=== PATIENT | female | born 1980 | race Caucasian/White ===

== ENCOUNTER → 2017-09-12 16:24 | Outpatient (CLI) | payer BC ==
[~2017-09-12 16:24] MED LIST: HYDROCODON-ACE1 EAC7 PO; IBUPROFEN600 MG PO; PERCOCET 10/3251 TA1 PO
[2017-10-06 18:31] VITALS: BMI 20.6
== END | disposition home or self-care (01) ==
LOC: D.RAD 16:24
DX: N20.0 Calculus of kidney (principal)

== ENCOUNTER → 2017-09-12 18:04 | Outpatient (CLI) | payer BC ==
[2017-10-06 18:31] VITALS: BMI 20.6
== END | disposition home or self-care (01) ==
LOC: D.LABREF 18:04
DX: R31.9 Hematuria, unspecified (principal)

== ENCOUNTER 2017-09-14 05:51 | Day surgery (SDC) | payer BC ==
[~2017-09-14] VITALS: Ht 165.1 cm; Wt 54.4 kg
--- NOTE | ~2017-09-14 | OP ---
PATIENT NAME: YURIY HOLCOMB MEDICAL RECORD: [id number] LOCATION:D[facility] ADMISSION DATE: SURGEON: KT WHITNEY MD DATE OF OPERATION: 09/14/2017 SURGEON: Kt Whitney MD ANESTHESIA: General anesthesia by Dr. Kt Pinto. PREOPERATIVE DIAGNOSES: Right flank pain, possible right ureteral stone. PROCEDURES: Cystoscopy and right retrograde pyelogram. FINDINGS: Single ureteral orifices bilaterally. No bladder tumors. Radiodensity in the pelvis is not a ureteral stone. BLOOD LOSS: None. CLINICAL HISTORY: This is a 37-year-old female, who has been complaining of right flank pain for some time. She had a CT scan performed at [facility] on 10/12/16. This showed a 7 mm right renal stone. She saw Dr. Perez about this and he told her to wait and try to pass it on her own. In the meantime, she lost her insurance, so she did not followup with him. She finally has insurance again and now she comes to have this addressed. Also, she has a cervix which needs to be removed by Dr. Dillon post hysterectomy. The cervix is quite adherent to the bladder and I will be helping him with this operation in the future. This is scheduled for early September. I obtained a KUB and it showed a radiodensity in the right pelvis which may have been the renal stone. We are going to try to confirm if it is a stone and if it is a stone, we will remove it. She is not allergic to anything. She was given [employer] accounting professional to the OR. DESCRIPTION OF PROCEDURE: The patient was given induction of general anesthesia. She was placed in dorsal lithotomy position and prepped and draped. A 21-Setswana cystoscope with 30-degree lens was used for visualization. Bladder was completely normal. Fluoroscopy revealed holding the density in the pelvis, which was our questionable stone. An open-ended ureteral catheter was placed into the right ureteral orifice and diluted contrast was injected. We did not see any filling defects and there was no hydronephrosis. No filling defects in the kidney were seen either. We were able to see peristaltic waves to go from the renal pelvis all the way down to the bladder with quick transit time. Since she had no indication that she has a stone, the procedure was terminated. She was awakened and brought to the recovery room. TRANSINT:[id number] Voice Confirmation ID: [id number] DOCUMENT ID: [id number] KT WHITNEY MD at 1132 CC: [id number] DICTATION DATE: 09/14/17854 CERTIFIED FLIGHT INSTRUCTOR: 09/14/[address] [facility] 09/14/17 [place] [id number]
[~2017-09-14 05:51] MED LIST changes: -HYDROCODON-ACE1 EAC7 PO
[2017-09-14 06:26] LABS: HEMATOCRIT 42.1 % (36.0-48.0); MCH 30.5 pg (26.0-34.0); MCHC 33.3 g/dL (31.0-37.0); MCV 91.7 fL (80.0-100.0); MEAN PLATELET VOLUME 10.2 fL (7.4-10.4); RBC 4.59 10x6/uL (4.00-5.40); RDW 12.2 % (11.5-14.5); WBC 4.2 10x3/uL (4.8-10.8)
[2017-09-14 06:59] VITALS: Ht 165.1 cm; Wt 54.4 kg
== END 2017-09-14 10:05 | disposition home or self-care (01) ==
LOC: D.OPS 05:51 → D.PAN 08:15 → D.OPS 10:05
PROVIDERS: Anesthesiology
DX: R10.9 Unspecified abdominal pain (principal); Z01.812 Encounter for preprocedural laboratory examination

== ENCOUNTER 2017-09-28 05:36 | Inpatient (IN) | payer BC ==
[2017-09-27 16:08] LABS: BASOPHILS 0.2 % (0-2); EOSINOPHILS 0.8 % (0-7); HEMATOCRIT 38.7 % (36.0-48.0); HEMOGLOBIN 13.1 g/dL (12-16); MCHC 33.9 g/dL (31.0-37.0); MCV 91.5 fL (80.0-100.0); MEAN PLATELET VOLUME 10.6 fL (7.4-10.4); MONOCYTES 8.1 % (2-11); NEUTROPHILS 48.9 % (40-80); PLATELET COUNT 233 10x3/uL (130-400); RBC 4.23 10x6/uL (4.00-5.40); RDW 12.3 % (11.5-14.5); WBC 5.1 10x3/uL (4.8-10.8)
[2017-09-27 16:26] LABS: HCG URINE NEGATIVE (NEGATIVE)
[2017-09-27 16:30] LABS: CALC OSMOLALITY 275 mosm/kg (275-300); CARBON DIOXIDE 25.8 mmol/L (21.0-32.0); CHLORIDE - SERUM 104 mmol/L (98-107); CREATININE - SERUM 0.7 mg/dL (0.6-1.3); GLUCOSE 87 mg/dL (74-106); SODIUM 138 mmol/L (136-145); UREA NITROGEN 15 mg/dL (7-18); eGFR NON AFRICAN AMERICAN > 90 mL/min (90-120)
[~2017-09-28] VITALS: Ht 162.6 cm; Wt 54.1 kg
[2017-09-28 06:05] VITALS: BP 89/52; BMI 20.4
[2017-09-28 10:56] VITALS: BP 104/56
[2017-09-28 17:40] VITALS: BP 103/62; Ht 162.6 cm; Wt 54.1 kg
[2017-09-28 19:17] VITALS: BP 96/51
[2017-09-28 22:20] VITALS: BP 86/51
[2017-09-29 06:08] LABS: BASOPHILS 0.1 % (0-2); EOSINOPHILS 0.1 % (0-7); HEMOGLOBIN 11.5 g/dL (12-16); IMMATURE GRANULOCYTES 0.1 % (0-5); LYMPHOCYTES 27.5 % (15-50); MCH 30.6 pg (26.0-34.0); MCHC 33.8 g/dL (31.0-37.0); MCV 90.4 fL (80.0-100.0); MEAN PLATELET VOLUME 10.8 fL (7.4-10.4); NEUTROPHILS 64.2 % (40-80); PLATELET COUNT 221 10x3/uL (130-400); RBC 3.76 10x6/uL (4.00-5.40); RDW 12.4 % (11.5-14.5)
[2017-09-29 06:10] LABS: WBC 9.4 10x3/uL (4.8-10.8)
[2017-09-29 07:30] VITALS: BP 101/60
[2017-09-29] MEDS ORDERED: HYDROCODON-ACE1 EAC7 PO (08:15)
== END 2017-09-29 09:30 | disposition home or self-care (01) | DRG 747 ==
LOC: D.OPS 05:36 → D.PAN 07:30 → D.OPS 08:45 → D.LD 09:03
PROVIDERS: Obstetrics & Gynecology
PROC: 0DNW4ZZ Release Peritoneum, Percutaneous Endoscopic Approach (ICD-10-PCS; 2017-09-28)
PROC: 0UBC8ZZ Excision of Cervix, Via Natural or Artificial Opening Endoscopic (ICD-10-PCS; principal; 2017-09-28 07:30)
DX: N92.0 Excessive and frequent menstruation with regular cycle (principal); N73.6 Female pelvic peritoneal adhesions (postinfective)

== ENCOUNTER 2017-10-06 15:56 | Inpatient (IN) | payer BC ==
[~2017-10-06] VITALS: Ht 162.6 cm; Wt 54.5 kg
[~2017-10-06 15:56] MED LIST changes: +HYDROCODON-ACE1 EAC7 PO
[2017-10-06 16:50] VITALS: BP 103/63; BMI 20.6
[2017-10-06 18:31] VITALS: Ht 162.6 cm; Wt 54.5 kg
[2017-10-06 19:29] VITALS: BP 97/63
[2017-10-07 06:57] LABS: HEMATOCRIT 31.3 % (36.0-48.0); HEMOGLOBIN 10.6 g/dL (12-16); MCH 30.5 pg (26.0-34.0); MCHC 33.9 g/dL (31.0-37.0); MCV 90.2 fL (80.0-100.0); MEAN PLATELET VOLUME 9.7 fL (7.4-10.4); PLATELET COUNT 218 10x3/uL (130-400); RBC 3.47 10x6/uL (4.00-5.40); RDW 12.6 % (11.5-14.5); WBC 7.8 10x3/uL (4.8-10.8)
[2017-10-07 07:21] VITALS: BP 106/64
[2017-10-07 07:21] LABS: LYMPHOCYTES 12 % (15-50); MONOCYTES 1 % (2-11); NEUTROPHILS 86 % (40-80); PLATELET ESTIMATE NORMAL
[2017-10-07 07:24] LABS: CALC OSMOLALITY 278 mosm/kg (275-300); CALCIUM 8.6 mg/dL (8.5-10.1); CARBON DIOXIDE 24.5 mmol/L (21.0-32.0); CHLORIDE - SERUM 107 mmol/L (98-107); CREATININE - SERUM 0.5 mg/dL (0.6-1.3); GLUCOSE 80 mg/dL (74-106); POTASSIUM - SERUM 3.9 mmol/L (3.5-5.1); SODIUM 141 mmol/L (136-145); UREA NITROGEN 10 mg/dL (7-18); eGFR NON AFRICAN AMERICAN > 90 mL/min (90-120)
== END 2017-10-07 14:20 | disposition home or self-care (01) | DRG 869 ==
LOC: D.LD 15:56
PROVIDERS: Obstetrics & Gynecology
DX: B99.8 Other infectious disease (principal); D72.829 Elevated white blood cell count, unspecified; Z87.442 Personal history of urinary calculi; Z87.891 Personal history of nicotine dependence